=== PATIENT | female | born 1950 | race Caucasian/White ===

== ENCOUNTER → 2020-01-21 | Outpatient (CLI) | payer MEDICARE ==
--- NOTE | 2020-01-21 12:12 | US ---
EXAMINATION TYPE: US abdomen complete DATE OF EXAM: 01/21/2020 COMPARISON: NONE CLINICAL HISTORY: R10.9 abdominal pain. EXAM MEASUREMENTS: Liver Length: 10.4 cm Gallbladder Wall: 0.2 cm CBD: 0.3 cm Spleen: 9.9 cm Right Kidney: 9.1 x 3.1 x 3.6 cm Left Kidney: 9.6 x 5.1 x 4.4 cm Pancreas: Tail obscured by overlying bowel gas Liver: wnl Gallbladder: wnl Evidence for sonographic Thomas's sign: CBD: wnl Spleen: wnl Right Kidney: not well visualized, mostly obscured by bowel gas Left Kidney: Superior pole obscured by bowel gas Upper IVC: wnl Abd Aorta: atherosclerotic changes, partially obscured Suboptimal study due to shadowing from overlying bowel gas. The visualized liver is slightly heterogeneous. The visualized abdominal aorta shows moderate to fabian re plaque particularly distally without greater than 3.0 cm aneurysm. There is no evidence of cholel ithiasis. Common bile duct is unremarkable. The visualized portions of the pancreas are homogenous. The spleen is unremarkable. Kidneys are symmetric and free of hydronephrosis. No renal lesions ar e seen on images saved. IMPRESSION: Source of acute abdominal pain not identified.
== END | disposition home or self-care (01) ==
LOC: RADUSWWP 09:49
PROVIDERS: ATTEND Internal Medicine Gastroenterology
DX: R10.9 Unspecified abdominal pain (principal)
CPT/HCPCS: 76700

== ENCOUNTER 2022-01-28 10:42 | Day surgery (SDC) | payer MEDICARE ==
[2022-01-27 09:18] VITALS: BMI 56.6
[~2022-01-28 10:42] MED LIST: LACTATED RINGERS 1,000 ML IV SCH
[2022-01-28 12:24] VITALS: TEMP 97.3
[2022-01-28] MEDS ORDERED: LIDOCAINE 2% INJ 20 MG/ML (2 ML VIAL) ONE (13:11)
[2022-01-28] MEDS ORDERED: PROPOFOL 10 MG/ML 20 ML VIAL IV ONE (13:11)
--- NOTE | 2022-01-28 13:25 | P.PCN ---
Date of Procedure: 01/28/22 Procedure(s) Performed: BRIEF HISTORY: Patient is a 72-year-old, pleasant, white female scheduled for an upper endoscopy as a part of evaluation of long-standing history of GERD of several years duration. Lately she is been having intermittent dysphagia to solids for the last 2 months and hence scheduled for an upper endoscopy with possible dilation. She is currently on omeprazole 20 mg twice daily.. PROCEDURE PERFORMED: Esophagogastroduodenoscopy with biopsy With biopsy PREOPERATIVE DIAGNOSIS: Long-standing history of GERD and intermittent dysphagia to solidsIV sedation per anesthesia. PROCEDURE: After informed consent was obtained, the patient was brought into the endoscopy unit. IV sedation was administered by Anesthesia under continuous monitoring. Initially the Olympus GIF-140 video endoscope was inserted into the mouth. Esophagus intubated without any difficulty. It was gradually advanced into the stomach and duodenum and carefully examined. The bulb and the second part of the duodenum appeared normal. The scope at this time was withdrawn to the stomach, adequately insufflated with air, and upon careful examination, mucosa of the antrum, body, appeared normal. There was a large extent hiatal hernia noted with the diaphragmatic impression at 40 cm from the incisors and th e GE junction at 30 cm from the incisors. The hiatal hernial sac appeared normal. Most of the body as well as cardia and fundus of the stomach was located in the hiatal hernia. The scope was then withdrawn into the esophagus. The GE junction was located at 30 cm from the incisors. The esophagus appeared normal. There were no erosions or ulcerations seen, biopsies were done from the distal esophagus and the patient tolerated the procedure well. IMPRESSION: 1. 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 2. No evidence of esophagitis or esophageal stricture RECOMMENDATIONS: The findings of this examination were discussed with the patient as well as a family. She was advised to follow with the biopsy results. In the meantime she will continue with omeprazole 20 mg twice daily and continue with small frequent meals..
[2022-01-28 13:43] VITALS: BP 126/88; PULSE 76; RESP 16
== END 2022-01-28 14:20 | disposition home or self-care (01) ==
LOC: ORWHC2ENDO 10:42
PROVIDERS: ATTEND Internal Medicine Gastroenterology
DX: R13.10 Dysphagia, unspecified (principal); K21.9 Gastro-esophageal reflux disease without esophagitis; K44.9 Diaphragmatic hernia without obstruction or gangrene; F32.A Depression, unspecified; I10 Essential (primary) hypertension
CPT/HCPCS: 88305; 43239; J2704; J2001

== ENCOUNTER 2023-01-31 07:28 | Day surgery (SDC) | payer MEDICARE ==
[2023-01-27 09:34] VITALS: BMI 26.2
[2023-01-31] MEDS ORDERED: LIDOCAINE 1% (10MG/ML) FOR IV START INTRADERMA PRN (07:46)
[2023-01-31 07:54] VITALS: RESP 16; TEMP 97.6
[2023-01-31] MEDS: LACTATED RINGERS 1,000 ML IV SCH ×2 (08:03→08:14)
[2023-01-31] MEDS ORDERED: LIDOCAINE 2% INJ 20 MG/ML (2 ML VIAL) ONE (08:13)
[2023-01-31] MEDS ORDERED: PROPOFOL 10 MG/ML 20 ML VIAL IV ONE (08:13)
--- NOTE | 2023-01-31 08:28 | P.PCN ---
Date of Procedure: 01/31/23 Procedure(s) Performed: BRIEF HISTORY: Patient is a 73-year-old, pleasant, white female scheduled for an upper endoscopy as a part of evaluation of intermittent dysphagia to solids since the hiatal hernia repair in August of this year. She is been having these episodes at least once or twice a week. As complain of occasional heartburn.. PROCEDURE PERFORMED: Esophagogastroduodenoscopy with biopsy and dilation. PREOPERATIVE DIAGNOSIS: Intermittent dysphagia to solids for the last 6 months duration. IV sedation per anesthesia. PROCEDURE: After informed consent was obtained, the patient was brought into the endoscopy unit. IV sedation was administered by Anesthesia under continuous monitoring. Initially the Olympus GIF-140 video endoscope was inserted into the mouth. Esophagus intubated without any difficulty. It was gradually advanced into the stomach and duodenum and carefully examined. The bulb and the second part of the duodenum appeared normal. The scope at this time was withdrawn to the stomach, adequately insufflated with air, and upon careful examination, mucosa of the antrum, body, cardia and the fundus appeared normal. The scope was then withdrawn into the esophagus. Small hiatal hernia noted. The GE junction was located at 39 cm from the incisors. There was early distal esophagus which are identified just above the GE junction and this was dilated using 18-20 mm balloon in a sequential fashion for 60 seconds. The mucosa in the distal esophagus appeared very irritated with friability and some erosions with some food stasis and multiple biopsies were done from this area. The rest of esophagus appeared normal and the patient tolerated the procedure well. IMPRESSION: 1. Distal esophageal stricture status post balloon dilation using 18-20 mm TTS balloon as described above. 2. Severe esophagitis involving the distal esophagus with friability and some granularity and food stasis status post multiple biopsies 3. Small hiatal hernia. RECOMMENDATIONS: The findings of this examination were discussed with the patient as well as his family. She was advised to start on omeprazole 20 mg twice daily and follow antireflux measures. She will remain on clear liquids for 2 hours. Follow up in office in 3 months..
[2023-01-31 08:53] VITALS: BP 151/77; PULSE 66
== END 2023-01-31 09:26 | disposition home or self-care (01) ==
LOC: ORWHC2ENDO 07:28
PROVIDERS: ATTEND Internal Medicine Gastroenterology
DX: K22.2 Esophageal obstruction (principal); K21.9 Gastro-esophageal reflux disease without esophagitis; K44.9 Diaphragmatic hernia without obstruction or gangrene; I10 Essential (primary) hypertension; E78.5 Hyperlipidemia, unspecified; Z79.899 Other long term (current) drug therapy
CPT/HCPCS: 88305; 43239; 43249; J2704; J2001; C1726; 88312

== ENCOUNTER → 2023-09-28 | Day surgery (SDC) | payer MEDICARE ==
[~2023-09-28] MED LIST changes: -LACTATED RINGERS 1,000 ML IV SCH; +LIDOCAINE 1% INJ 10MG/ML (20 ML MDV) ONE; +PROPOFOL 10 MG/ML 20 ML VIAL IV ONE
[2023-09-28 12:30] VITALS: TEMP 97.9
[2023-09-28] MEDS: LACTATED RINGERS 1,000 ML IV SCH (12:35)
--- NOTE | 2023-09-28 13:08 | P.PCN ---
Date of Procedure: 09/28/23 Procedure(s) Performed: BRIEF HISTORY: Patient is a 71-year-old white female scheduled for an upper endoscopy as a part of evaluation of progressive dysphagia to solids and liquids for the last 8 months since she had surgery for a large hiatal hernia In January 2023. PROCEDURE PERFORMED: Esophagogastroduodenoscopy with biopsy and dilation. PREOPERATIVE DIAGNOSIS: Progressive dysphagia to solids of 8 months duration IV sedation per anesthesia. PROCEDURE: After informed consent was obtained, the patient was brought into the endoscopy unit. IV sedation was administered by Anesthesia under continuous monitoring. Initially the Olympus GIF-140 video endoscope was inserted into the mouth. Esophagus intubated without any difficulty. It was gradually advanced into the stomach and duodenum and carefully examined. The bulb and the second part of the duodenum appeared normal. The scope at this time was withdrawn to the stomach, adequately insufflated with air, and upon careful examination, mucosa of the antrum, body, cardia and the fundus appeared normal. The scope was then withdrawn into the esophagus. The GE junction was located at 39 cm from the incisors. There was mild narrowing of the GE junction and this was dilated using a 20 mm TTS balloon for 60 seconds. Also there were superficial erosions or ulcerations in the distal esophagus with retained liquid and biopsies were done from this area.The Rest of theesophagus appeared normal. The patient tolerated the procedure well. IMPRESSION: 1.Mild narrowing of the GE junction status post balloon dilation using 20 mm TTS balloon as described above 2.Linear erosions and superficial ulcerations in the distal esophagus with some retained liquid status post biopsies RECOMMENDATIONS: The findings of this examination were discussed with the patient as well as her family. She was advised to follow with the biopsy results. Increase omeprazole to 40 mg twice daily and follow antireflux measures.
[2023-09-28 13:57] VITALS: BP 119/73; PULSE 67; RESP 18
== END ==
LOC: ORWHC2ENDO 11:50
PROVIDERS: ATTEND Internal Medicine Gastroenterology
DX: K22.10 Ulcer of esophagus without bleeding (principal); K44.9 Diaphragmatic hernia without obstruction or gangrene; I10 Essential (primary) hypertension; Z79.899 Other long term (current) drug therapy; Z79.82 Long term (current) use of aspirin
CPT/HCPCS: 88305; 43239; 43249; J2001; J2704; C1726

== ENCOUNTER 2024-12-25 06:00 | Day surgery (SDC) | payer MEDICARE ==
[2024-12-23 15:58] VITALS: BMI 25.7
[2024-12-25] MEDS: LACTATED RINGERS 1,000 ML IV SCH (06:48)
[2024-12-25] MEDS: IV FLUID CONTINUATION 1,000 ML IV ONE (06:50)
[2024-12-25 06:52] VITALS: TEMP 97.5
[2024-12-25] MEDS ORDERED: LIDOCAINE 2% (PF) 20 MG/ML 5 ML VIAL ONE (07:00)
[2024-12-25] MEDS ORDERED: PROPOFOL 10 MG/ML 20 ML VIAL IV ONE (07:00)
--- NOTE | 2024-12-25 07:38 | P.PCN ---
Date of Procedure: 12/25/24 Procedure(s) Performed: Brief history: Patient is a pleasant 74-year-old white female scheduled for an elective upper endoscopy as well as colonoscopy as a part of evaluation of GERD/intermittent dysphagia to solids and screening for prior history of colon polyps. Her last colonoscopy was in [facility] in 2019 according the patient was noted to have a polyp and was advised to have repeat colonoscopy in 5 years Procedure performed: Esophagogastroduodenoscopy with biopsy Colonoscopy with snare polypectomy Preoperative diagnosis: GERD/intermittent dysphagia to solids Screening for prior history of colon polyps Anesthesia: MAC Procedure: After informed consent was obtained from the patient was brought into the endoscopy unit and IV sedation was administered by anesthesia under continuous monitoring. Initially upper endoscopy was done. The Olympus GF 160 video endoscope was inserted inserted into the mouth and esophagus intubated without any difficulty and was gradually advanced into the stomach and duodenum and carefully examined. The bulb and second part of the duodenum appeared normal. The scope was then withdrawn into the stomach adequately insufflated with air and upon careful examination the antrum had mild gastritis and biopsies were done from this area. Body, cardia and fundus appeared normal. The scope was then withdrawn into the esophagus. Hiatal hernia noted. The GE junction was located at 40 cm to the incisors. It appeared regular with superficial erosions consistent with LA grade B reflux esophagitis. There was questionable Howard's esophagus identified in this area and hence biopsies were performed. Rest of the esophagus appeared normal. Patient tolerated the procedure well. At this time the patient continued to remain sedation. Initial digital rectal examination was normal. Olympus CF 160 video colonoscope was then inserted into the rectum and gradually advanced to the cecum without any difficulty. Careful examination was performed as the scope was gradually being withdrawn. The prep was excellent. The cecum, appeared normal. The ascending colon there were 4 polyps measuring between 4 to 6 mm in size all of which were removed by cold snare polypectomy. Rest of the ascending colon, transverse colon, descending colon, sigmoid colon and rectum appeared normal. Scattered sigmoid diverticulosis. Retroflexion was performed in the rectum and no lesions were noted. Patient tolerated the procedure well. Impression: 1. Upper endoscopy revealed erosions in the distal esophagus consistent with LA grade B reflux esophagitis, small hiatal hernia and mild antral gastritis 2. Colonoscopy revealed: 4 polyps in the ascending colon measuring between 4 to 6 mm in size status post cold snare polypectomy Scattered sigmoid diverticulosis Recommendations: Findings of this examination were discussed with the patient as well as her family. Continue with omeprazole 20 mg twice daily and follow antireflux measures. She was advised to follow-up with the biopsy results. If the biopsy reveals adenoma he can have repeat colonoscopy in 3 years.
[2024-12-25 07:44] VITALS: RESP 16
[2024-12-25 07:56] VITALS: BP 124/89; PULSE 64
== END 2024-12-25 08:37 | disposition home or self-care (01) ==
LOC: ORWHC2ENDO 06:00
PROVIDERS: ATTEND Internal Medicine Gastroenterology
DX: Z12.11 Encounter for screening for malignant neoplasm of colon (principal); K29.50 Unspecified chronic gastritis without bleeding; D12.2 Benign neoplasm of ascending colon; K21.00 Gastro-esophageal reflux disease with esophagitis, without bleeding; K44.9 Diaphragmatic hernia without obstruction or gangrene; K57.30 Diverticulosis of large intestine without perforation or abscess without bleeding; E78.5 Hyperlipidemia, unspecified; I10 Essential (primary) hypertension; F41.9 Anxiety disorder, unspecified; F32.A Depression, unspecified; Z88.1 Allergy status to other antibiotic agents; Z79.82 Long term (current) use of aspirin; Z79.899 Other long term (current) drug therapy
CPT/HCPCS: 88305; 88312; 45385; 43239; J2704; J2003